=== PATIENT | female | born 1965 | race Caucasian/White ===

== ENCOUNTER → 2017-01-22 | Outpatient (CLI) | payer OTHER ==
[~2017-01-22] MED LIST: ADVAIR 100/501 EA INH; ADVAIR 250/501 EA INH; ALBUTEROL0.09 MG/A2 IH; ALBUTEROL0.09 MG/A2 INH; ALBUTEROL0.63 MG/3 INH; ALBUTEROL2.5 MG/0.5 INH; ASPIRIN ADULT L81 M1 PO; ATROVENT I0.5 MG/2.5 INH; BENTYL10 MG PO; BUPROPION HYDR150 M1 PO; CLARITIN10 MG PO; DOXYCYCLINE100 M3 PO; FLONASE0.05 MG/AC NS; LEVAQUIN750 M1 PO; LISINOPRIL10 MG PO; LISINOPRIL20 MG PO; MEDROL DOSEPAK4 MG PO; MUCINEX ER600 MG PO; MUCINEX600 MG PO; Motrin,Rufen800 MG PO; PREDNISONE10 MG PO; PREDNISONE20 MG PO; PRILOSEC20 M1 PO; PROTONIX20 MG PO; SYNTHROID25 MCG PO; TOPROL XL25 MG PO; VIBRAMYCIN100 MG PO; ZITHROMAX Z PA250 MG PO; ZOFRAN ODT4 MG SL; ZOLOFT100 MG PO; ZYRTEC10 MG PO; [UNRECOGNIZED DRUG - REMARK]
== END | disposition home or self-care (01) ==
LOC: MAMMO 11:08
DX: Z12.31 Encounter for screening mammogram for malignant neoplasm of breast (principal)

== ENCOUNTER 2017-02-08 15:13 | Emergency (ER) | payer OTHER, MEDICAID ==
[~2017-02-08] VITALS: Ht 160 cm; Wt 113.4 kg
[2017-02-08 15:24] VITALS: BP 142/73
== END 2017-02-08 17:17 | disposition home or self-care (01) ==
LOC: ED 15:13
DX: M25.461 Effusion, right knee (principal); I10 Essential (primary) hypertension; J45.909 Unspecified asthma, uncomplicated; E53.8 Deficiency of other specified B group vitamins; J44.9 Chronic obstructive pulmonary disease, unspecified; E66.01 Morbid (severe) obesity due to excess calories; Z68.42 Body mass index [BMI] 45.0-49.9, adult; Z86.2 Personal history of diseases of the blood and blood-forming organs and certain disorders involving the immune mechanism; Z98.890 Other specified postprocedural states; Z87.891 Personal history of nicotine dependence; Z90.89 Acquired absence of other organs; Z79.82 Long term (current) use of aspirin; Z79.899 Other long term (current) drug therapy; Z88.5 Allergy status to narcotic agent

== ENCOUNTER 2017-02-11 19:20 | Emergency (ER) | payer MEDICAID ==
[~2017-02-11] VITALS: Ht 162.5 cm; Wt 108.9 kg
[2017-02-11 20:15] VITALS: BP 160/79
== END 2017-02-11 20:37 | disposition home or self-care (01) ==
LOC: ED 19:20
DX: T39.395A Adverse effect of other nonsteroidal anti-inflammatory drugs [NSAID], initial encounter (principal); Z88.6 Allergy status to analgesic agent; Z79.82 Long term (current) use of aspirin; Z87.891 Personal history of nicotine dependence; Z79.899 Other long term (current) drug therapy; Z95.5 Presence of coronary angioplasty implant and graft; Y92.9 Unspecified place or not applicable

== ENCOUNTER 2017-12-11 12:00 | Emergency (ER) | payer MEDICAID ==
[~2017-12-11] VITALS: Ht 170.1 cm; Wt 113.4 kg
[2017-12-11 12:31] LABS: BASO % 0.4 % (0.0-1.0); EOS # 0.1 10*3/uL (0.0-0.4); EOS % 1.6 % (1.0-4.0); HEMOGLOBIN 11.9 g/dl (12.0-16.0); LYMPH # 2.2 10*3/uL (1.3-4.4); MEAN CELL VOLUME 81.6 fl (81.0-99.0); MEAN CORPUSCULAR HGB CONC 33.1 g/dl (33.0-37.0); MEAN PLATELET VOLUME 11.2 fl (9.6-12.3); MONO # 0.5 10*3/uL (0.1-1.0); MONO % 6.9 % (3.0-9.0); NEUT # 4.5 10*3/uL (2.3-7.9); NEUT % 60.4 % (47.0-73.0); PLATELET COUNT AUTOMATED 201 10*3/uL (130-400); RED BLOOD COUNT 4.41 10*6/uL (4.10-5.10); RED CELL DISTRI WIDTH 13.8 % (0-14.5); WHITE BLOOD COUNT 7.4 10*3/uL (4.8-10.8)
[2017-12-11 12:49] LABS: ALBUMIN 3.9 gm/dl (3.1-4.5); ALKALINE PHOSPHATASE 93 U/L (45-117); BUN 15 mg/dl (7-24); CHLORIDE 97 mmol/L (98-107); SGOT/AST 19 IU/L (3-35); SGPT/ALT 21 U/L (12-78); SODIUM 134 mmol/L (136-145); TOTAL PROTEIN 7.9 gm/dL (6.4-8.2)
[2017-12-11 13:42] VITALS: BP 133/71
== END 2017-12-11 14:16 | disposition home or self-care (01) ==
LOC: ED 12:00
PROVIDERS: Family Medicine
DX: S16.1XXA Strain of muscle, fascia and tendon at neck level, initial encounter (principal); S00.93XA Contusion of unspecified part of head, initial encounter; M25.562 Pain in left knee; M79.662 Pain in left lower leg; J44.9 Chronic obstructive pulmonary disease, unspecified; I10 Essential (primary) hypertension; I25.2 Old myocardial infarction; I25.10 Atherosclerotic heart disease of native coronary artery without angina pectoris; E11.9 Type 2 diabetes mellitus without complications; E66.01 Morbid (severe) obesity due to excess calories; Z79.82 Long term (current) use of aspirin; Z79.899 Other long term (current) drug therapy; Z88.6 Allergy status to analgesic agent; Z68.42 Body mass index [BMI] 45.0-49.9, adult; W10.8XXA Fall (on) (from) other stairs and steps, initial encounter; Y93.89 Activity, other specified; Y92.89 Other specified places as the place of occurrence of the external cause; Y99.8 Other external cause status

== ENCOUNTER 2018-02-07 22:34 | Inpatient (IN) | payer MEDICAID ==
[~2018-02-07] VITALS: Ht 160 cm; Wt 111.6 kg
[2018-02-07 22:43] VITALS: BP 160/85
[2018-02-07 23:13] LABS: BASO % 0.5 % (0.0-1.0); EOS # 0.1 10*3/uL (0.0-0.4); HEMATOCRIT 34.4 % (37.0-47.0); HEMOGLOBIN 11.1 g/dl (12.0-16.0); LYMPH # 2.5 10*3/uL (1.3-4.4); LYMPH % 38.5 % (27.0-41.0); MEAN CELL VOLUME 82.5 fl (81.0-99.0); MEAN CORPUSCULAR HGB 26.6 pg (27.0-31.0); MEAN CORPUSCULAR HGB CONC 32.3 g/dl (33.0-37.0); MEAN PLATELET VOLUME 11.7 fl (9.6-12.3); MONO # 0.4 10*3/uL (0.1-1.0); MONO % 6.7 % (3.0-9.0); NEUT # 3.4 10*3/uL (2.3-7.9); PLATELET COUNT AUTOMATED 193 10*3/uL (130-400); RED BLOOD COUNT 4.17 10*6/uL (4.10-5.10); RED CELL DISTRI WIDTH 14.6 % (0-14.5); WHITE BLOOD COUNT 6.4 10*3/uL (4.8-10.8)
[2018-02-07 23:23] LABS: ACT PARTIAL THROMBO TIME 22.5 SECONDS (20.8-31.5); INTERNATIONAL NORM RATIO 0.9 (2.0-3.5)
[2018-02-07 23:30] LABS: ALBUMIN 3.7 gm/dl (3.1-4.5); ALKALINE PHOSPHATASE 95 U/L (45-117); BUN 19 mg/dl (7-24); CHLORIDE 107 mmol/L (98-107); POTASSIUM 3.5 mmol/L (3.5-5.1); SGOT/AST 16 IU/L (3-35); SGPT/ALT 20 U/L (12-78); SODIUM 143 mmol/L (136-145); TOTAL PROTEIN 7.3 gm/dL (6.4-8.2)
[2018-02-07 23:33] LABS: TROPONIN I 0.181 ng/ml (<0.045)
[2018-02-07 23:40] VITALS: BP 135/78
[2018-02-08] VITALS (9 sets, daily range): BP systolic 100–169; BP diastolic 50–93
[2018-02-08 04:36] LABS: BASO % 0.5 % (0.0-1.0); EOS # 0.2 10*3/uL (0.0-0.4); EOS % 2.9 % (1.0-4.0); HEMATOCRIT 33.6 % (37.0-47.0); LYMPH # 2.7 10*3/uL (1.3-4.4); LYMPH % 45.3 % (27.0-41.0); MEAN CELL VOLUME 82.6 fl (81.0-99.0); MEAN CORPUSCULAR HGB CONC 32.7 g/dl (33.0-37.0); MEAN PLATELET VOLUME 11.2 fl (9.6-12.3); MONO # 0.4 10*3/uL (0.1-1.0); MONO % 6.3 % (3.0-9.0); NEUT # 2.6 10*3/uL (2.3-7.9); NEUT % 44.7 % (47.0-73.0); PLATELET COUNT AUTOMATED 159 10*3/uL (130-400); RED BLOOD COUNT 4.07 10*6/uL (4.10-5.10); RED CELL DISTRI WIDTH 14.5 % (0-14.5); WHITE BLOOD COUNT 5.9 10*3/uL (4.8-10.8)
[2018-02-08 04:54] LABS: BUN 17 mg/dl (7-24); CHLORIDE 108 mmol/L (98-107); CHOLESTEROL 168 mg/dL (<200); CREATININE 0.84 mg/dL (0.55-1.02); HDL CHOLESTEROL 64 mg/dl (40-60); LDL CHOLESTEROL 93 mg/dL (9-159); PHOSPHOROUS 4.4 mg/dL (2.5-4.9); POTASSIUM 3.8 mmol/L (3.5-5.1); SODIUM 143 mmol/L (136-145); TRIGLYCERIDES 54 mg/dl (<150); VLDL CHOLESTEROL 11 mg/dL (6-40)
[2018-02-08 05:01] LABS: THYROID STIM HORMONE (HS) 0.609 uIU/ml (0.358-4.75)
[2018-02-08] MEDS ORDERED: MOBIC7.5 MG PO (05:41)
[2018-02-08] MEDS ORDERED: CLARITIN10 MG PO (05:41)
[2018-02-08] MEDS ORDERED: PROTONIX TR40 M1 PO (05:42)
[2018-02-08] MEDS ORDERED: PROTONIX40 MG PO (05:43)
[2018-02-08] MEDS ORDERED: TESSALON PERLE100 MG PO (05:45)
[2018-02-08] MEDS ORDERED: OXYBUTYNIN ER15 MG PO (05:46)
[2018-02-08] MEDS ORDERED: PROAIR HFA8.5 GM INH (05:48)
[2018-02-08 07:57] LABS: VITAMIN D, 25-HYDROXY 79.4 ng/mL (30-100)
[2018-02-08] MEDS ORDERED: IMDUR SA30 MG PO (17:51)
== END 2018-02-08 19:25 | disposition home or self-care (01) | DRG 281 ==
LOC: ED 22:34 → EDHOLD 23:43 → ICCU 02-08 05:10
PROVIDERS: Internal Medicine Nephrology; Student in an Organized Health Care Education/Training Program
PROC: 4A02XM4 Measurement of Cardiac Total Activity, External Approach (ICD-10-PCS; principal; 2018-02-08)
PROC: 3E073KZ Introduction of Other Diagnostic Substance into Coronary Artery, Percutaneous Approach (ICD-10-PCS; 2018-02-08)
DX: I21.4 Non-ST elevation (NSTEMI) myocardial infarction (principal); Z68.41 Body mass index [BMI] 40.0-44.9, adult; E66.01 Morbid (severe) obesity due to excess calories; F41.9 Anxiety disorder, unspecified; E83.41 Hypermagnesemia; D64.9 Anemia, unspecified; J30.9 Allergic rhinitis, unspecified; R73.9 Hyperglycemia, unspecified; E83.51 Hypocalcemia; J43.2 Centrilobular emphysema; E53.8 Deficiency of other specified B group vitamins; I48.91 Unspecified atrial fibrillation; E03.9 Hypothyroidism, unspecified; I10 Essential (primary) hypertension; I25.10 Atherosclerotic heart disease of native coronary artery without angina pectoris; F32.9 Major depressive disorder, single episode, unspecified; Z90.89 Acquired absence of other organs; Z87.891 Personal history of nicotine dependence; Z80.0 Family history of malignant neoplasm of digestive organs; Z95.5 Presence of coronary angioplasty implant and graft; Z80.8 Family history of malignant neoplasm of other organs or systems; Z81.8 Family history of other mental and behavioral disorders; Z82.49 Family history of ischemic heart disease and other diseases of the circulatory system; Z88.8 Allergy status to other drugs, medicaments and biological substances; Z79.899 Other long term (current) drug therapy; Z79.82 Long term (current) use of aspirin

== ENCOUNTER 2018-06-04 12:55 | Emergency (ER) | payer OTHER, MEDICAID ==
[~2018-06-04] VITALS: Ht 160 cm; Wt 113.4 kg
[~2018-06-04 12:55] MED LIST changes: +IMDUR SA30 MG PO; +MOBIC7.5 MG PO; +OXYBUTYNIN ER15 MG PO; +PROAIR HFA8.5 GM INH; +PROTONIX TR40 M1 PO; +PROTONIX40 MG PO; +TESSALON PERLE100 MG PO
[2018-06-04 12:56] VITALS: BP 144/83
[2018-06-04] MEDS ORDERED: NAPROSYN500 MG PO (13:16)
== END 2018-06-04 14:00 | disposition home or self-care (01) ==
LOC: ED 12:55
DX: S83.91XA Sprain of unspecified site of right knee, initial encounter (principal); J44.9 Chronic obstructive pulmonary disease, unspecified; I25.10 Atherosclerotic heart disease of native coronary artery without angina pectoris; I25.2 Old myocardial infarction; I10 Essential (primary) hypertension; E03.9 Hypothyroidism, unspecified; E66.01 Morbid (severe) obesity due to excess calories; F17.200 Nicotine dependence, unspecified, uncomplicated; Z88.5 Allergy status to narcotic agent; Z79.899 Other long term (current) drug therapy; Z79.82 Long term (current) use of aspirin; Z90.49 Acquired absence of other specified parts of digestive tract; Z79.1 Long term (current) use of non-steroidal anti-inflammatories (NSAID); W01.0XXA Fall on same level from slipping, tripping and stumbling without subsequent striking against object, initial encounter; Y93.89 Activity, other specified; Y92.89 Other specified places as the place of occurrence of the external cause; Y99.8 Other external cause status

== ENCOUNTER 2019-09-10 01:04 | Inpatient (IN) | payer SELFPAY ==
[2019-09-10] VITALS (9 sets, daily range): BP systolic 92–135; BP diastolic 47–96
[~2019-09-10] VITALS: Ht 160 cm; Wt 107.3 kg
--- NOTE | ~2019-09-10 | EKG ---
[place], [place] ELECTROCARDIOGRAM REPORT NAME: FATIMAH LENZ UNIT #: [id number] ROOM: [facility] DOCTOR: EPIPHANY DRAFT REPORT BIRTHDATE: [birth year] [facility] Test Date: 2019-09-10 Test Time: 01:12:14 Pat Name: FATIMAH LENZ Department: Room: [facility] Gender: F Ship Officer: Vashti Marinelli : 1965 Requested By: ANTONI DEMPSEY Order Number: [id number] Reading MD: Yuly Powell MD Measurements Intervals [place] Rate: 67 P: 65 NV: 128 QRS: 75 QRSD: 87 T: -15 QT: 398 QTc: 420 Interpretive Statements Sinus rhythm Atrial premature complex Borderline repolarization abnormality Compared to ECG 02/01/2019 23:41:35 Atrial premature complex(es) now present Myocardial infarct finding no longer present Electronically Signed On 09-10-2019 8:51:13 PST by Yuly Powell MD CM:EKGRPT:ELECTROCARDIOGRAM REPORT [id number] ANTONI DEMPSEY MD EPIPHANY DRAFT REPORT ANTONI DEMPSEY MD
--- NOTE | ~2019-09-10 | EKG ---
[place], [place] ELECTROCARDIOGRAM REPORT NAME: FATIMAH LENZ UNIT #: [id number] ROOM: [facility] DOCTOR: EPIPHANY DRAFT REPORT BIRTHDATE: [birth year] [facility] Test Date: 2019-09-10 Test Time: 04:14:53 Pat Name: FATIMAH LENZ Department: Room: [facility] Gender: F Oncology Registrar: Vashti Marinelli : 1965 Requested By: ANTONI DEMPSEY Order Number: [id number] Reading MD: Yuly Powell MD Measurements Intervals [place] Rate: 58 P: 75 TN: 130 QRS: 80 QRSD: 89 T: 11 QT: 438 QTc: 431 Interpretive Statements Sinus rhythm Compared to ECG 02/01/2019 23:41:35 Myocardial infarct finding no longer present Electronically Signed On 09-10-2019 8:51:58 PST by Yuly Powell MD CM:EKGRPT:ELECTROCARDIOGRAM REPORT [id number] ANTONI DEMPSEY MD EPIPHANY DRAFT REPORT ANTONI DEMPSEY MD
--- NOTE | ~2019-09-10 | EKG ---
[place], [place] ELECTROCARDIOGRAM REPORT NAME: FATIMAH LENZ UNIT #: [id number] ROOM: [facility] DOCTOR: TERIANY DRAFT REPORT BIRTHDATE: [birth year] [facility] Test Date: 2019-09-10 Test Time: 07:19:58 Pat Name: FATIMAH LENZ Department: Room: [facility] Gender: F Plastic Welder: Prachi Basilio : 1965 Requested By: ANTONI DEMPSEY Order Number: [id number] Reading MD: Yuly Powell MD Measurements Intervals [place] Rate: 55 P: 68 CO: 132 QRS: 71 QRSD: 89 T: 8 QT: 456 QTc: 437 Interpretive Statements Sinus rhythm Ventricular premature complex Compared to ECG 02/01/2019 23:41:35 Ventricular premature complex(es) now present Myocardial infarct finding no longer present Electronically Signed On 09-10-2019 8:52:09 PST by Yuly Powell MD CM:EKGRPT:ELECTROCARDIOGRAM REPORT [id number] ANTONI DEMPSEY MD EPIPHANY DRAFT REPORT ANTONI DEMPSEY MD
[~2019-09-10 01:04] MED LIST changes: +NAPROSYN500 MG PO; +TOVIAZ8 MG PO
[2019-09-10 01:31] LABS: HEMATOCRIT 37.7 % (37.0-47.0); HEMOGLOBIN 12.4 g/dl (12.0-16.0); MEAN CELL VOLUME 84.9 fl (81.0-99.0); MEAN CORPUSCULAR HGB 27.9 pg (27.0-31.0); MEAN CORPUSCULAR HGB CONC 32.9 g/dl (33.0-37.0); MEAN PLATELET VOLUME 13.3 fl (9.6-12.3); PLATELET COUNT AUTOMATED 184 10*3/uL (130-400); RED BLOOD COUNT 4.44 10*6/uL (4.10-5.10); RED CELL DISTRI WIDTH 13.5 % (0-14.5); WHITE BLOOD COUNT 6.7 10*3/uL (4.8-10.8)
[2019-09-10 01:44] LABS: ACT PARTIAL THROMBO TIME 23.8 SECONDS (20.0-32.1); INTERNATIONAL NORM RATIO 0.9 (2.0-3.5)
[2019-09-10 01:50] LABS: ALBUMIN 3.7 gm/dl (3.1-4.5); ALKALINE PHOSPHATASE 78 U/L (45-117); BUN 17 mg/dl (7-24); CHLORIDE 108 mmol/L (98-107); CREATININE 0.83 mg/dL (0.55-1.02); SGOT/AST 52 IU/L (3-35); SGPT/ALT 25 U/L (12-78); SODIUM 139 mmol/L (136-145); TOTAL PROTEIN 7.8 gm/dL (6.4-8.2)
--- NOTE | 2019-09-10 01:54 | NUR ---
CRITICAL POTASSIUM 6.1. SPECIMAN HEMOLYZED PER DARRIUS.CRITICAL TROP 0.185. DR PALENCIA MADE AWARE
[2019-09-10 01:56] LABS: POTASSIUM 6.1 mmol/L (3.5-5.1); TROPONIN I 0.185 ng/ml (<0.045)
--- NOTE | 2019-09-10 01:57 | NUR ---
SPOKE TO DARRIUS IN LAB. CRITICAL LACTIC 2.1. DR. PALENCIA MADE AWARE
[2019-09-10 02:05] LABS: ATYPICAL LYMPHS 2 % (0-0); BASOPHILS 1 % (0-1); TOTAL CELLS COUNTED 100 #CELLS
[2019-09-10 02:06] LABS: PLATELET SUFFICIENCY NORMAL (NORMAL)
--- NOTE | 2019-09-10 04:11 | NUR ---
A 53 YEAR OLD FEMALE admitted to ICCU, under the services of TESSA Gutierrez DO with a diagnosis of NSTEMI. Chief complaint is CHEST PRESSURE RADIATING INTO LEFT ARM, DIZZINESS. Patient arrived via stretcher from ER. Monitor applied. Initial assessment completed. Vital signs taken and recorded. TESSA GUTIERREZ DO notified of admission to the unit. Orders received. See assessment for past medical history, medications and allergies. Patient and/or family oriented to unit. [facility] ICCU visitation policy reviewed. Clothing/patient valuable form completed. WILLY MARTIN
--- NOTE | 2019-09-10 04:58 | NUR ---
DR. FLORES BEEPED FOR CONSULT.
--- NOTE | 2019-09-10 05:15 | NUR ---
DR. CARL NOTIFIED OF RECENT TROPONIN RESULTS.
--- NOTE | 2019-09-10 06:19 | NUR ---
RESTING IN BED WITH EYES CLOSED. APPEARS TO BE SLEEPING. HEP LOCK INTACT. NO DISTRESS NOTED. MONITOR NSR/SB. CONDITION GUARDED.
--- NOTE | 2019-09-10 07:24 | NUR ---
Shift chart check completed.
[2019-09-10] MEDS ORDERED: LASIX20 MG PO (07:30)
--- NOTE | 2019-09-10 08:40 | NUR ---
ASSESSMENT DONE - DR MYRICK HER AND PATIENT SEEN
--- NOTE | 2019-09-10 14:47 | NUR ---
MOVED TO 503-2 VIA WHEEL CHAIR WITH BELONGINGS
--- NOTE | 2019-09-10 20:33 | NUR ---
24 HR chart check completed.
[2019-09-11] VITALS: BP 102/58
[2019-09-11 06:50] LABS: BUN 18 mg/dl (7-24); CHLORIDE 106 mmol/L (98-107); CREATININE 0.73 mg/dL (0.55-1.02); PHOSPHOROUS 2.8 mg/dL (2.5-4.9); POTASSIUM 3.9 mmol/L (3.5-5.1); SODIUM 140 mmol/L (136-145)
[2019-09-11 08:00] VITALS: BP 128/54
--- NOTE | 2019-09-11 09:00 | NUR ---
Patient Transport Officer in to talk to patient. Patient states lives at home with family. There are few steps in the home. Physician: kim Pharmacy: [facility] Home health services: none Patient's level of ADLs: INDEPENDENT Patient has working utilities: all working DME: [employer] Follow-up physician's appointment after d/c: will be made by hospitalist nurse director upon discharge Does patient want to access PORTAL?: no Discharge plan discussed with patient, she lives at home with family, is independent in adls and ambulation, works, drives, she states she will return home when medically stable and denies any home needs. CAROLINA GRAHAM
[2019-09-11 11:50] VITALS: BP 105/53
[2019-09-11 16:00] VITALS: BP 88/43
--- NOTE | 2019-09-11 19:34 | NUR ---
PATIENT IS SLEEPING WITH EASY AND REGULAR RESPERS ON ROOM AIR AND AROUSES EASILY FOR ASSESSMENT. ASSESSMENT IS COMPLETE WITH NO C/O OR S/S OF DISTRESS NOTED AT THIS TIME. BED IS LOW, LOCKED, AND CALL LIGHT IS WITHIN REACH. WILL CONTNIUE TO MONITOR, SEE SHIFT ASSESSMENT.
[2019-09-11 20:00] VITALS: BP 112/48
[2019-09-12] VITALS: BP 96/71
--- NOTE | 2019-09-12 01:02 | NUR ---
24 HR. CHART CHECK COMPLETE.
--- NOTE | 2019-09-12 03:29 | NUR ---
PATIENT SLEEPING, CALL LIGHT IS WITHIN REACH.
--- NOTE | 2019-09-12 07:30 | NUR ---
PT RESTING IN BED. NO DISTRESS NOTED/ WILL MONITOR
[2019-09-12 08:00] VITALS: BP 98/60
--- NOTE | 2019-09-12 09:24 | NUR ---
PT TO CARDIAC REHAB VIA WC
--- NOTE | 2019-09-12 10:15 | NUR ---
INFORMED CONSENT OBTAINED FOR LEXISCAN NUCLEAR STRESS TEST WITH DR. BHATTI. RESTING EKG SINUS EDISON WITH A RESTING HR OF 57 WITH BP OF 132/66. LUNGS CLEAR WITH SPO2 OF 97% ON ROOM AIR. PT COMPLETED A 1:00 LEXISCAN PROTOCOL RECEIVING LEXISCAN 0.4 MG IV OVER 10 SECONDS. HAD NO CHEST PAIN OR ANY EKG CHANGES. DID C/O FEELING OF SHORTNESS OF BREATH AND A "WEIRD FEELING" THAT WAS RELIEVED IN RECOVERY. HAD A PEAK HR OF 84 WITH BP OF 104/54. LAST RECOVERY HR OF 74 WITH BP OF 110/58. AWAITING SCANNING IN STABLE CONDITION.
[2019-09-12] MEDS ORDERED: ATORVASTATIN CA40 M1 PO (13:03)
[2019-09-12] MEDS ORDERED: LISINOPRIL20 MG PO (13:03)
[2019-09-12] MEDS ORDERED: SYNTHROID25 MCG PO (13:03)
[2019-09-12] MEDS ORDERED: IMDUR SA30 MG PO (13:03)
[2019-09-12] MEDS ORDERED: METOPROLOL SUCC25 M2 PO (13:03)
--- NOTE | 2019-09-12 14:45 | NUR ---
Discharge instructions reviewed with patient/family. Patient receptive and verbalizes understanding. Follow-up care arranged. Written instructions given to patient/family. DONN SANDERS
== END 2019-09-12 14:45 | disposition home or self-care (01) | DRG 281 ==
LOC: ED 01:04 → 5E 02:49 → ICCU 02:49 → EDHOLD 02:49 → ICCU 03:03 → 5E 15:15
PROVIDERS: Emergency Medicine Emergency Medical Services; Student in an Organized Health Care Education/Training Program; ADMIT Internal Medicine
PROC: 3E073KZ Introduction of Other Diagnostic Substance into Coronary Artery, Percutaneous Approach (ICD-10-PCS; principal; 2019-09-12)
PROC: 4A02XM4 Measurement of Cardiac Total Activity, External Approach (ICD-10-PCS; principal; 2019-09-12)
DX: I21.4 Non-ST elevation (NSTEMI) myocardial infarction (principal); E44.0 Moderate protein-calorie malnutrition; Z68.42 Body mass index [BMI] 45.0-49.9, adult; E66.01 Morbid (severe) obesity due to excess calories; J44.9 Chronic obstructive pulmonary disease, unspecified; E78.5 Hyperlipidemia, unspecified; I10 Essential (primary) hypertension; F32.9 Major depressive disorder, single episode, unspecified; E03.9 Hypothyroidism, unspecified; N32.81 Overactive bladder; K21.9 Gastro-esophageal reflux disease without esophagitis; I25.119 Atherosclerotic heart disease of native coronary artery with unspecified angina pectoris; E87.8 Other disorders of electrolyte and fluid balance, not elsewhere classified; I25.10 Atherosclerotic heart disease of native coronary artery without angina pectoris; R74.0 Nonspecific elevation of levels of transaminase and lactic acid dehydrogenase [LDH]; E87.5 Hyperkalemia; J45.909 Unspecified asthma, uncomplicated; Z88.5 Allergy status to narcotic agent; Z82.49 Family history of ischemic heart disease and other diseases of the circulatory system; Z82.0 Family history of epilepsy and other diseases of the nervous system; Z82.3 Family history of stroke; Z80.0 Family history of malignant neoplasm of digestive organs; I25.2 Old myocardial infarction

== ENCOUNTER 2020-09-23 21:56 | Inpatient (IN) | payer MEDICAID ==
[~2020-09-23] VITALS: Ht 160 cm; Wt 117.2 kg
[~2020-09-23 21:56] MED LIST changes: +ATORVASTATIN CA40 M1 PO; +LASIX20 MG PO; +METOPROLOL SUCC25 M2 PO
[2020-09-23 21:57] VITALS: BP 152/81
[2020-09-23 23:06] LABS: BASO % 0.7 % (0.0-1.0); EOS # 0.1 10*3/uL (0.0-0.4); EOS % 2.3 % (1.0-4.0); HEMATOCRIT 36.1 % (37.0-47.0); LYMPH # 1.7 10*3/uL (1.3-4.4); LYMPH % 28.8 % (27.0-41.0); MEAN CORPUSCULAR HGB 26.9 pg (27.0-31.0); MEAN CORPUSCULAR HGB CONC 31.3 g/dl (33.0-37.0); MEAN PLATELET VOLUME 11.5 fl (9.6-12.3); MONO # 0.4 10*3/uL (0.1-1.0); NEUT # 3.6 10*3/uL (2.3-7.9); NEUT % 60.9 % (47.0-73.0); PLATELET COUNT AUTOMATED 195 10*3/uL (130-400); RED CELL DISTRI WIDTH 12.8 % (0-14.5)
[2020-09-23 23:24] LABS: ALBUMIN 3.4 gm/dl (3.1-4.5); ALKALINE PHOSPHATASE 92 U/L (45-117); BUN 12 mg/dl (7-24); CHLORIDE 106 mmol/L (98-107); CREATININE 0.93 mg/dL (0.55-1.02); LIPASE 103 U/L (73-393); POTASSIUM 3.9 mmol/L (3.5-5.1); SGOT/AST 14 IU/L (3-35); SGPT/ALT 22 U/L (12-78); SODIUM 143 mmol/L (136-145); TOTAL PROTEIN 6.8 gm/dL (6.4-8.2)
[2020-09-23 23:26] LABS: TROPONIN I 0.072 ng/ml (<0.045)
[2020-09-24] VITALS (12 sets, daily range): BP systolic 96–154; BP diastolic 52–84
[2020-09-24 02:41] LABS: ALBUMIN 3.6 gm/dl (3.1-4.5); ALKALINE PHOSPHATASE 90 U/L (45-117); BASO % 0.3 % (0.0-1.0); BUN 11 mg/dl (7-24); CHLORIDE 105 mmol/L (98-107); CHOLESTEROL 160 mg/dL (<200); CREATININE 0.95 mg/dL (0.55-1.02); EOS # 0.1 10*3/uL (0.0-0.4); EOS % 1.7 % (1.0-4.0); HDL CHOLESTEROL 67 mg/dl (40-60); HEMATOCRIT 35.3 % (37.0-47.0); LDL CHOLESTEROL 84 mg/dL (9-159); LYMPH # 1.6 10*3/uL (1.3-4.4); MEAN CELL VOLUME 85.3 fl (81.0-99.0); MEAN CORPUSCULAR HGB 27.1 pg (27.0-31.0); MEAN CORPUSCULAR HGB CONC 31.7 g/dl (33.0-37.0); MEAN PLATELET VOLUME 11.6 fl (9.6-12.3); MONO # 0.4 10*3/uL (0.1-1.0); MONO % 6.2 % (3.0-9.0); NEUT # 4.2 10*3/uL (2.3-7.9); NEUT % 66.3 % (47.0-73.0); PLATELET COUNT AUTOMATED 199 10*3/uL (130-400); POTASSIUM 4.2 mmol/L (3.5-5.1); RED BLOOD COUNT 4.14 10*6/uL (4.10-5.10); RED CELL DISTRI WIDTH 12.9 % (0-14.5); SGOT/AST 14 IU/L (3-35); SGPT/ALT 21 U/L (12-78); SODIUM 144 mmol/L (136-145); TOTAL PROTEIN 6.9 gm/dL (6.4-8.2); TRIGLYCERIDES 47 mg/dl (<150); VLDL CHOLESTEROL 9 mg/dL (6-40); WHITE BLOOD COUNT 6.3 10*3/uL (4.8-10.8)
[2020-09-24 02:49] LABS: BILIRUBIN Negative (Negative); BLOOD Negative (Negative); CLARITY Clear (Clear); COLOR Yellow (Yellow); GLUCOSE Negative (Negative); KETONE Negative (Negative); LEUKO ESTERASE Negative (Negative); NITRITE Negative (Negative); PH 5.5 (4.5-8.0); SPECIFIC GRAVITY <= 1.005 (1.001-1.030); UROBILINOGEN 0.2 E.U./dl (0.0-1.0)
--- NOTE | 2020-09-24 02:52 | NUR ---
Time: 251 A 54 year old F admitted to under services of GIOVANI VAIL DO. Pt. arrived via bed from ER. Chief complaint: EPIGASTRIC PAIN AND FEELING OF FULLNESS FOR A COUPLE DAYS, WORSENING. DIONNE JONES
[2020-09-24] MEDS ORDERED: PANTOPRAZOLE SO20 MG PO (03:24)
[2020-09-24] MEDS ORDERED: ZESTRIL40 MG PO (03:27)
[2020-09-24] MEDS ORDERED: UNITHROID100 MCG PO (03:28)
[2020-09-24] MEDS ORDERED: PROAIR HFA8.5 GM INH (03:29)
[2020-09-24 03:30] LABS: RBC 0-2 rbc/hpf (0-2); WBC 0-2 wbc/hpf (0-5)
[2020-09-24] MEDS ORDERED: LIPITOR40 MG PO (03:33)
--- NOTE | 2020-09-24 05:30 | NUR ---
DR SCOTT CONTACTED REGARDING CRITICAL TROP, TRENDING DOWN
--- NOTE | 2020-09-24 06:00 | NUR ---
SLEPT SINCE ARRIVING ON FLOOR. RESPIRATIONS EASY. IV FLUIDS MAINTAINED. CALL LIGHT WITHIN REACH. NO VOICED COMPLAINTS. NPO STATUS MAINTAINED FOR SURGICAL CONSULT
[2020-09-24 07:46] LABS: VITAMIN D, 25-HYDROXY 43.2 ng/mL (30-100)
--- NOTE | 2020-09-24 08:22 | NUR ---
VANGIE GREEN HERE TO SEE PT
--- NOTE | 2020-09-24 08:47 | NUR ---
DR SANCHEZ IN SEE PT
--- NOTE | 2020-09-24 13:55 | NUR ---
PT REQUESTED AND GIVEN DILAUDID FOR C/O ABD PAIN PT RATES PAIN 06/03 WILL MONITOR
--- NOTE | 2020-09-24 14:29 | NUR ---
PT STATES THAT SAM HELPED WILL MONITOR
--- NOTE | 2020-09-24 17:24 | NUR ---
PT REQUESTED AND GIVEN NORCO FOR C/O ABD PAIN / PT RATES PAIN 04/03 WILL MONITOR
--- NOTE | 2020-09-24 18:03 | NUR ---
[facility]
--- NOTE | 2020-09-24 20:00 | NUR ---
SITTING IN RECLINER WATCHING TV. RESPIRATIONS EASY. LUNGS DIMINISHED, CLEAR. PULSE OX 95% RA. ABD SOFT WITH HYPO BOWEL SOUNDS, PASSING FLATUS. 4 SURGICAL SITES WITH GLUE INTACT, YORDAN PATENT. TRACE EDEMA WITH SCDS IN PLACE. CALL LIGHT WITHIN REACH. NO VOICED COMPLAINTS
--- NOTE | 2020-09-24 22:00 | NUR ---
AMBULATING HALLWAY WITH ASSIST X 1.
--- NOTE | 2020-09-24 22:48 | NUR ---
MEDICATED WITH NORCO AND RESTORIL PER PRN ORDER FOR COMPLAINTS OF ABD PAIN RATING AN 8 AND TO ASSIST WITH SLEEP. WILL MONITOR. CONT PULSE OX MAINTAINED
--- NOTE | 2020-09-24 23:30 | NUR ---
MEDS EFFECTIVE, SLEEPING.
[2020-09-25] VITALS: BP 129/69
--- NOTE | 2020-09-25 00:30 | NUR ---
SLEEPING IN BED WITH NO ACUTE DISTRESS NOTED. RESPIRATIONS EASY. VSS. CALL LIGHT WITHIN REACH
--- NOTE | 2020-09-25 04:57 | NUR ---
MEDICATED WITH NORCO PER PRN ORDER FOR COMPLAINTS OF ABD PAIN RATING A 6. CALL LIGHT WITHIN REACH. WILL MONITOR
--- NOTE | 2020-09-25 05:35 | NUR ---
EARLIER MEDS APPEAR EFFECTIVE. SLEEPING IN RECLINER. RESPIRATIONS EASY. O2 PRESENT AT BEDSIDE BUT NOT IN USE, CONT PULSE OX MAINTAINED. CALL LIGHT WITHIN REACH. NO FURTHER VOICED COMPLAINTS
[2020-09-25 07:08] LABS: CREATININE 1.14 mg/dL (0.55-1.02)
--- NOTE | 2020-09-25 07:37 | NUR ---
PT RESTING IN BED/ NO DISTRESS NOTED. WILL MONITOR
[2020-09-25 08:00] VITALS: BP 127/57
--- NOTE | 2020-09-25 09:00 | NUR ---
Social Science Analyst in to talk to patient. Patient states lives at home with her son. There are 12 steps in the home. Physician: Dr. Ian Padron Pharmacy: [facility] Home health services: none Patient's level of ADLs: INDEPENDENT Patient has working utilities: yes DME: [employer] Follow-up physician's appointment after d/c: will be made by the hospitalist nurse director upon discharge Does patient want to access PORTAL?: no Discharge plan discussed with patient. She is sitting up in her bedside recliner. She states she lives at home with her son. She is independent in her ADLs and ambulation. Discussed home health care services and she declines. CM will continue to follow for any discharge planning needs. When medically stable she will be discharged to home. She states she is unsure of who will provide transportation on discharge but will have transportation. She states her daughter will leave [facility] at 3pm for work. VANGIE MOSS
[2020-09-25 12:00] VITALS: BP 125/62
[2020-09-25] MEDS ORDERED: NORCO 5-325 TA1 EACH PO (14:05)
[2020-09-25] MEDS ORDERED: CIPRO500 MG PO (14:05)
[2020-09-25] MEDS ORDERED: FLAGYL500 MG PO (14:05)
--- NOTE | 2020-09-25 16:15 | NUR ---
Discharge instructions reviewed with patient/family. Patient receptive and verbalizes understanding. Follow-up care arranged. Written instructions given to patient/family. DONN SANDERS PT STATES THAT SHE KNOWS HOW TO EMPTY HER YORDAN DRAIN
== END 2020-09-25 16:15 | disposition home or self-care (01) | DRG 417 ==
LOC: ED 21:56 → EDHOLD 09-24 01:32 → 5E 09-24 01:32
PROVIDERS: Internal Medicine; Surgery; ADMIT Internal Medicine; ATTEND Internal Medicine
PROC: 0FT44ZZ Resection of Gallbladder, Percutaneous Endoscopic Approach (ICD-10-PCS; principal; 2020-09-24)
DX: K80.13 Calculus of gallbladder with acute and chronic cholecystitis with obstruction (principal); N17.0 Acute kidney failure with tubular necrosis; Z68.42 Body mass index [BMI] 45.0-49.9, adult; I25.10 Atherosclerotic heart disease of native coronary artery without angina pectoris; D64.9 Anemia, unspecified; K21.9 Gastro-esophageal reflux disease without esophagitis; E03.9 Hypothyroidism, unspecified; F17.220 Nicotine dependence, chewing tobacco, uncomplicated; J44.9 Chronic obstructive pulmonary disease, unspecified; I10 Essential (primary) hypertension; R00.1 Bradycardia, unspecified; J45.20 Mild intermittent asthma, uncomplicated; E53.8 Deficiency of other specified B group vitamins; F32.9 Major depressive disorder, single episode, unspecified; E66.01 Morbid (severe) obesity due to excess calories; N32.81 Overactive bladder; R73.9 Hyperglycemia, unspecified; E87.8 Other disorders of electrolyte and fluid balance, not elsewhere classified; I25.2 Old myocardial infarction; Z98.891 History of uterine scar from previous surgery; Z90.49 Acquired absence of other specified parts of digestive tract; Z82.0 Family history of epilepsy and other diseases of the nervous system; Z82.49 Family history of ischemic heart disease and other diseases of the circulatory system; Z82.3 Family history of stroke; Z80.0 Family history of malignant neoplasm of digestive organs; Z80.8 Family history of malignant neoplasm of other organs or systems; Z79.82 Long term (current) use of aspirin; Z79.899 Other long term (current) drug therapy; Z71.6 Tobacco abuse counseling

== ENCOUNTER 2021-04-02 19:42 | Emergency (ER) | payer MEDICAID ==
[~2021-04-02] VITALS: Ht 160 cm; Wt 108.9 kg
[~2021-04-02 19:42] MED LIST changes: +CIPRO500 MG PO; +FLAGYL500 MG PO; +LIPITOR40 MG PO; +NORCO 5-325 TA1 EACH PO; +PANTOPRAZOLE SO20 MG PO; +UNITHROID100 MCG PO; +ZESTRIL40 MG PO
[2021-04-02 20:03] VITALS: BP 137/72
[2021-04-02 22:49] LABS: BASO % 0.5 % (0.0-1.0); EOS # 0.1 10*3/uL (0.0-0.4); EOS % 1.5 % (1.0-4.0); HEMATOCRIT 40.5 % (37.0-47.0); LYMPH # 1.9 10*3/uL (1.3-4.4); LYMPH % 28.3 % (27.0-41.0); MEAN CELL VOLUME 83.7 fl (81.0-99.0); MEAN CORPUSCULAR HGB 27.1 pg (27.0-31.0); MEAN CORPUSCULAR HGB CONC 32.3 g/dl (33.0-37.0); MEAN PLATELET VOLUME 11.9 fl (9.6-12.3); MONO # 0.6 10*3/uL (0.1-1.0); MONO % 8.3 % (3.0-9.0); NEUT % 61.1 % (47.0-73.0); PLATELET COUNT AUTOMATED 206 10*3/uL (130-400); RED BLOOD COUNT 4.84 10*6/uL (4.10-5.10); RED CELL DISTRI WIDTH 13.2 % (0-14.5); WHITE BLOOD COUNT 6.6 10*3/uL (4.8-10.8)
[2021-04-02 23:10] LABS: ALBUMIN 3.6 gm/dl (3.1-4.5); ALKALINE PHOSPHATASE 100 U/L (45-117); BUN 23 mg/dl (7-24); CHLORIDE 111 mmol/L (98-107); CREATININE 1.04 mg/dL (0.55-1.02); POTASSIUM 3.7 mmol/L (3.5-5.1); SGOT/AST 11 IU/L (3-35); SGPT/ALT 28 U/L (12-78); SODIUM 141 mmol/L (136-145); TOTAL PROTEIN 7.9 gm/dL (6.4-8.2)
[2021-04-03] MEDS ORDERED: ZOFRAN4 MG PO (00:20)
== END 2021-04-03 00:30 | disposition home or self-care (01) ==
LOC: ED 19:42
PROVIDERS: Internal Medicine
DX: R51.9 Headache, unspecified (principal); R11.0 Nausea; R42 Dizziness and giddiness; M79.604 Pain in right leg; M79.605 Pain in left leg; Z79.899 Other long term (current) drug therapy; Z90.49 Acquired absence of other specified parts of digestive tract; Z98.890 Other specified postprocedural states

== ENCOUNTER → 2022-02-24 | Outpatient (CLI) | payer MEDICAID ==
[~2022-02-24] MED LIST changes: +XARELTO20 M1 PO; +ZOFRAN4 MG PO
== END | disposition home or self-care (01) ==
LOC: RESCLI 01:07
PROVIDERS: ATTEND Internal Medicine
DX: I11.9 Hypertensive heart disease without heart failure (principal); I25.10 Atherosclerotic heart disease of native coronary artery without angina pectoris; Z12.31 Encounter for screening mammogram for malignant neoplasm of breast; Z12.11 Encounter for screening for malignant neoplasm of colon; R73.03 Prediabetes; E78.5 Hyperlipidemia, unspecified; J44.9 Chronic obstructive pulmonary disease, unspecified; K21.9 Gastro-esophageal reflux disease without esophagitis; E55.9 Vitamin D deficiency, unspecified; E03.9 Hypothyroidism, unspecified; R60.0 Localized edema; Z79.899 Other long term (current) drug therapy; Z79.82 Long term (current) use of aspirin